=== PATIENT | male | born 1955 | race African-American/Black ===

== ENCOUNTER 2019-08-08 08:08 | Observation (INO) | payer BC, SELFPAY ==
[2019-08-08] MEDS ORDERED: Ketorolac Tromethamine 30 MG/ML VIAL ONE (08:25)
[2019-08-08 08:32] LABS: #Basophils 0.1 thou/uL (0.0-0.2); #Eosinphils 0.1 thou/uL (0.0-0.7); #Lymphocytes 1.7 thou/uL (1.20-3.40); #Monocytes 0.7 thou/uL (0.11-0.59); #Neutrophils 2.5 thou/uL (1.40-6.50); %Basophils 1.2 % (0.0-1.0); %Eosinophils 1.5 % (0.0-10.0); %Lymphocytes 34.5 % (21.0-51.0); %Neutrophils 48.8 % (42.0-75.0); Hemoglobin 12.3 g/dL (14.0-18.0); Mean Corpuscular HGB CONC 31.6 g/dL (32.0-36.0); Mean Corpuscular Hemoglobin 24.1 pg (27.0-31.0); Mean Corpuscular Volume 76.4 fL (78.0-98.0); Mean Platelet Volume 10.3 fL (7.4-10.4); Platelet Count 186 thou/uL (130-400); RBC Distribution Width 14.7 % (11.5-14.5); Red Blood Cell (RBC) Count 5.09 mill/uL (4.70-6.10)
--- NOTE | 2019-08-08 08:37 | RAD ---
EXAM: Single view of the chest HISTORY: Chest pain COMPARISON: 06/19/2003 FINDINGS: Single view of the chest shows a normal sized cardiomediastinal silhouette. Calcified lymp h nodes are seen in the right hilar region. There is no evidence of consolidation, mass, or pleural effusion. The bones are unremarkable. IMPRESSION: No evidence of acute cardiopulmonary disease
[2019-08-08 08:47] LABS: ALT (SGPT) 32 U/L (8-55); AST (SGOT) 27 U/L (5-34); Albumin 3.9 g/dL (3.4-4.8); Alkaline Phosphatase 91 U/L (40-110); Anion Gap 13 mmol/L (10-20); BUN (Urea Nitrogen) 16 mg/dL (8.4-25.7); Bilirubin, Total 0.5 mg/dL (0.2-1.2); CK (CPK) 584 U/L (30-200); Calc. Creatinine Clearance 0 mL/min (70-130); Calcium 8.9 mg/dL (7.8-10.44); Carbon Dioxide 24 mmol/L (23-31); Chloride 106 mmol/L (98-107); Estimated GFR-MDRD 72; Globulin 2.9 g/dL (2.4-3.5); Glucose 110 mg/dL (80-115); Lipase 37 U/L (8-78); Potassium 4.1 mmol/L (3.5-5.1); Protein, Total 6.8 g/dL (5.8-8.1); Sodium 139 mmol/L (136-145)
[2019-08-08] MEDS ORDERED: Nitroglycerin 2% Ointment 1 INCH/1 GM Packet ONE (09:02)
[2019-08-08] MEDS ORDERED: Ondansetron PF 4 MG/2 ML Vial ONE (09:37)
[2019-08-08] MEDS ORDERED: Morphine 4 MG/ML VIAL ONE (09:37)
[2019-08-08] MEDS ORDERED: Acetaminophen 325 MG TAB PO PRN (10:00)
[2019-08-08] MEDS ORDERED: Ondansetron PF 4 MG/2 ML Vial IVP PRN (10:00)
[2019-08-08] MEDS ORDERED: Ondansetron ODT 4 MG TAB SL PRN (10:00)
[2019-08-08] MEDS ORDERED: Aspirin 325 MG TAB PO SCH (12:00)
[2019-08-08 12:15] VITALS: BMI 40.5
[2019-08-08 12:36] LABS: Troponin I Less than 0.010 ng/mL (< 0.028)
[2019-08-08] MEDS ORDERED: Senokot S 8.6-50 MG TAB PO PRN (13:03)
[2019-08-08] MEDS ORDERED: HYDROcodone/Acetaminophen 5/325 mg Tablet PO PRN ×2 (13:03)
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
[2019-08-08] MEDS: Sodium Chloride 0.9% 1,000 ML IV SCH (16:41)
[2019-08-08 17:17] LABS: Troponin I Less than 0.010 ng/mL (< 0.028)
[2019-08-08 17:18] LABS: Cardiac Risk 4.2 (Less than 4.5)
[2019-08-09] MEDS: Sodium Chloride 0.9% 1,000 ML IV SCH (04:18)
[2019-08-09 04:29] LABS: ALT (SGPT) 28 U/L (8-55); AST (SGOT) 23 U/L (5-34); Albumin 3.6 g/dL (3.4-4.8); Alkaline Phosphatase 84 U/L (40-110); Anion Gap 13 mmol/L (10-20); BUN (Urea Nitrogen) 16 mg/dL (8.4-25.7); Bilirubin, Total 0.3 mg/dL (0.2-1.2); CK (CPK) 508 U/L (30-200); Calc. Creatinine Clearance 118 mL/min (70-130); Calcium 8.6 mg/dL (7.8-10.44); Carbon Dioxide 24 mmol/L (23-31); Chloride 105 mmol/L (98-107); Estimated GFR-MDRD 72; Globulin 2.7 g/dL (2.4-3.5); Glucose 97 mg/dL (80-115); Protein, Total 6.3 g/dL (5.8-8.1); Sodium 138 mmol/L (136-145)
[2019-08-09 05:15] LABS: Eosinophils 2 % (0-10); Hemoglobin 11.5 g/dL (14.0-18.0); Lymphocytes 35 % (21-51); MDiff Complete? YES; Mean Corpuscular HGB CONC 31.7 g/dL (32.0-36.0); Mean Corpuscular Hemoglobin 24.3 pg (27.0-31.0); Mean Corpuscular Volume 76.7 fL (78.0-98.0); Mean Platelet Volume 10.1 fL (7.4-10.4); Microcytosis SLIGHT = 6-15 cells (100X) (0-5/hpf); Monocytes 16 % (0-10); Neutrophil 46 % (42-75); Platelet Count 179 thou/uL (130-400); Platelet Morphology Comment Appears Adequate; RBC Distribution Width 14.7 % (11.5-14.5); Reactive Lymphocytes 1 % (0-10); Red Blood Cell (RBC) Count 4.75 mill/uL (4.70-6.10); White Blood Cell (WBC) Count 5.5 thou/uL (4.8-10.8)
[2019-08-09] MEDS ORDERED: Enoxaparin Sodium 40 MG/0.4 ML SYRINGE SC SCH (09:00)
--- NOTE | 2019-08-09 09:58 | NM ---
CARDIAC SPECT: CLINICAL HISTORY: 65-year-old male with chest pain and hypertension. TECHNIQUE: A myocardial perfusion scan was performed using the single isotope two day protocol with 32 mCi techn etium-99m sestamibi injected intravenously for both stress and rest images. Pharmacologic stress with Adenosine was monitored and interpreted by Laurie Roth NP. FINDINGS: Homogeneous tracer distribution is seen in the myocardial segments on stress and rest images without fixed or reversible defects. GATED SPECT LVEF: 61%. WALL MOTION EXAM: Normal. IMPRESSION: Normal myocardial perfusion scan. POS: ARNULFO
[2019-08-09] MEDS ORDERED: ISOVUE-370 76%-LOCM 1 ML ONE (11:50)
[2019-08-09] MEDS ORDERED: Amlodipine 10 MG TAB PO SCH (17:00)
[2019-08-09 18:19] LABS: Iron 31 ug/dL (65-175); Iron Binding Capacity, Total 413 mcg/dL (261-462)
--- NOTE | 2019-08-09 19:26 | CT ---
Exam: CT angiogram of the thoracic aorta CT angiogram of the abdominal aorta HISTORY: Elevated d-dimer. Chest pain. Evaluate for dissection. Comparison: None TECHNIQUE: CT angiogram of the thoracic and abdominal aorta performed in the axial plane. Three-dimen sional reformatted images are submitted for interpretation FINDINGS: Chest CT: Calcified mediastinal lymph nodes. No masses or hematoma. Normal heart size. Lower neck and axilla are unremarkable Trachea and central bronchi: Patent Pleural spaces: No pleural effusion Pneumothorax: None Right lung: Linear opacities in the lower lobes due to scar or atelectasis. Left lung: Linear opacities in the left lower lobe with scar or atelectasis. ABDOMEN: Appropriate arterial phase enhancement solid organs. Gallbladder: Unremarkable Kidneys: Symmetric enhancement. No evidence of obstructive uropathy. Mesentery: No mass, lymphadenopathy, free air or free fluid. Alimentary canal: Limited evaluation due to lack of oral contrast. Previous Jenaro fundoplication is noted. Normal caliber small bowel loops. Ileocecal junction is unremarkable. Grossly visualized appendix and colon are unremarkable. Osseous structures: No lytic or blastic lesions in the osseous structures. Lumbar fusion changes are incompletely evaluated but there is no evidence of periarticular lucency CT ANGIOGRAM: The aortic root, ascending thoracic aorta, aortic arch, descending thoracic aorta, abdo haritha aorta, aortic bifurcation have appropriate enhancement and luminal diameter. The origin of the great vessels of the neck are unremarkable. The celiac artery origin, superior mesenteric artery origin, bilateral renal arteries and inferior mesenteric artery of appropriate enhancement and luminal diameter. Note, there are 2 left renal arteries. Limited evaluation the central pulmonary arterial system. Grossly no evidence of a central PE. IMPRESSION: 1. Unremarkable CT angiogram of the thoracic and abdominal aorta. 2. Additional findings as detailed above. Transcribed Date/Time: 08/09/2019 7:35 PM
[2019-08-09 19:31] VITALS: TEMP 98.3
[2019-08-09 20:20] VITALS: BP 163/91
[2019-08-10] MEDS ORDERED: Amlodipine 10 MG TAB PO SCH (09:00)
== END 2019-08-09 20:34 | disposition home or self-care (01) ==
LOC: ERS 08:08 → 2SW 10:15
PROVIDERS: ADMIT Internal Medicine; ATTEND Internal Medicine
DX: R07.2 Precordial pain (principal); M25.512 Pain in left shoulder; I10 Essential (primary) hypertension; R79.89 Other specified abnormal findings of blood chemistry; Z79.1 Long term (current) use of non-steroidal anti-inflammatories (NSAID); Z79.899 Other long term (current) drug therapy
CPT/HCPCS: 36415; 71045; 71275; 72191; 74175; 78452; 80053; 80061; 82550; 82728; 83540; 83550; 83690; 84443; 84484; 85025; 85379; 93005; 93017; 94760; 96372; 96374; 96375; A9500; G0378; J0153; J1650; J1885; J2270; J2405; Q9966